=== PATIENT | female | born 1960 | race Caucasian/White ===

== ENCOUNTER 2017-12-27 13:35 | Emergency (ER) | payer OTHER ==
[~2017-12-27] VITALS: Ht 162.6 cm; Wt 99.8 kg
[2017-12-27 13:44] VITALS: Ht 162.6 cm; Wt 99.8 kg
[2017-12-27 15:12] LABS: BASOPHIL % 0.8 % (0-2); PLATELET COUNT 299 x10^3mcL (130-400); RED CELL DISTRIBUTION WIDTH 12.9 % (11.5-14.5)
[2017-12-27 15:33] LABS: CALCIUM 9.4 mg/dL (8.5-10.1); CARBON DIOXIDE 23.1 mmol/L (21-32); CHLORIDE SERUM 101 mmol/L (98-107); CREATININE SERUM 0.8 mg/dL (0.6-1.0); GFR1 > 60 mL/min; GLUCOSE SERUM 100 mg/dL (74-106); POTASSIUM SERUM 3.6 mmol/L (3.5-5.1); SODIUM SERUM 137 mmol/L (136-145)
[2017-12-27 16:01] VITALS: BP 139/82
== END 2017-12-27 16:01 | disposition left against medical advice (07) ==
LOC: ED 13:35
PROVIDERS: Emergency Medicine
DX: R51 Headache (principal); I16.0 Hypertensive urgency; R55 Syncope and collapse; Z90.89 Acquired absence of other organs; Z90.49 Acquired absence of other specified parts of digestive tract
CPT/HCPCS: 85378; J3010; J3490; J7030; J7040; Q0092